=== PATIENT | male | born 1950 | race Caucasian/White ===

== ENCOUNTER 2017-04-07 07:49 | Day surgery (SDC) | payer OTHER, MEDICARE ==
[2017-04-06 10:18] VITALS: BMI 24.7
[2017-04-07] MEDS ORDERED: PROPOFOL 20 ML ONE ×2 (08:00)
[2017-04-07 09:23] VITALS: TEMP 97.7
[2017-04-07 09:37] VITALS: BP 115/68; PULSE 54
[2017-04-07] MEDS ORDERED: GLYCOPYRROLATE 0.2 MG/1 ML VIAL ONE (10:00)
== END 2017-04-07 09:45 | disposition home or self-care (01) ==
LOC: FASU-ENDO 07:49
PROVIDERS: ATTEND Internal Medicine Gastroenterology
PROC: 0DJD8ZZ Inspection of Lower Intestinal Tract, Via Natural or Artificial Opening Endoscopic (ICD-10-PCS; principal; 2017-04-07 08:59)
DX: Z12.11 Encounter for screening for malignant neoplasm of colon (principal); Z80.0 Family history of malignant neoplasm of digestive organs

== ENCOUNTER 2021-12-29 09:10 | Day surgery (SDC) | payer OTHER, MEDICARE ==
[2021-12-29 09:51] VITALS: BMI 23.7
[2021-12-29] MEDS ORDERED: PROPOFOL 20 ML ONE ×2 (10:28)
[2021-12-29 11:36] VITALS: BP 112/61; PULSE 67; TEMP 99.1
== END 2021-12-29 11:35 | disposition home or self-care (01) ==
LOC: FASU-ENDO 09:10
PROVIDERS: ATTEND Internal Medicine Gastroenterology
PROC: 0DJD8ZZ Inspection of Lower Intestinal Tract, Via Natural or Artificial Opening Endoscopic (ICD-10-PCS; principal; 2021-12-29 10:41)
DX: Z12.11 Encounter for screening for malignant neoplasm of colon (principal); Z80.0 Family history of malignant neoplasm of digestive organs